=== PATIENT | male | born 2000 | race Caucasian/White ===

== ENCOUNTER 2025-11-08 04:12 | Emergency (ER) | payer SELFPAY ==
[~2025-11-08] VITALS: Ht 165.1 cm; Wt 72.6 kg
[2025-11-08 04:14] VITALS: O2SAT 100
[2025-11-08] MEDS: MORPHINE SULFATE 4 MG/ML INJ (FOR IV/IM USE) IV ONE (04:51)
[2025-11-08] MEDS: ONDANSETRON HCL 4MG/2ML INJ IV ONE (04:51)
[2025-11-08 05:02] LABS: BASOPHILS % 0.7 % (0.0-2.0); EOSINOPHILS % 3.1 % (0.0-5.0); HEMATOCRIT. 50.1 % (42.0-52.0); HEMOGLOBIN. 16.7 g/dL (14.0-18.0); LYMPHOCYTES % 30.5 % (20.0-50.0); MEAN PLATELET VOLUME 8.4 fl (7.4-10.4); MONOCYTES % 5.6 % (2.0-8.0); NEUTROPHILS % 60.1 % (40.0-76.0); PLATELET 261 x1000/uL (130-400); RED BLOOD CELL COUNT 5.78 mill/uL (4.7-6.1); RED CELL DISTRIBUTION WIDTH 13.2 % (11.6-14.6)
[2025-11-08] MEDS ORDERED: TOPUD PO (06:37)
[2025-11-08 06:43] VITALS: BP 120/80; PULSE 60; RESP 18; TEMP 36.7; O2SAT 100
[2025-11-08 08:45] LABS: CREATININE 0.8 mg/dL (0.6-1.3)
[2025-11-08 08:46] LABS: PROTEIN TOTAL 8.5 g/dL (6.0-8.3); UREA NITROGEN BLOOD 10 mg/dL (9-23)
[2025-11-08 08:47] LABS: ASPARTATE AMINOTRANSFERASE 32 IU/L (<34)
[2025-11-08 08:48] LABS: BILIRUBIN DIRECT 0.2 mg/dL (<=3.0); BILIRUBIN TOTAL 0.5 mg/dL (0.1-1.0)
== END 2025-11-08 06:53 | disposition home or self-care (01) ==
LOC: ER 04:12
DX: K80.20 Calculus of gallbladder without cholecystitis without obstruction (principal); R10.13 Epigastric pain
CPT/HCPCS: 99285; 96374; 76705; 96375; 80076; 80048; 83690; 85025; 36415; J2405; J2270